=== PATIENT | female | born 1995 ===

== ENCOUNTER 2018-03-28 12:20 | Inpatient (IN) | payer OTHER ==
[2018-03-28 13:17] LABS: BASO % 0.8 % (0-2.0); EOS % 0.2 % (0-4.5); HEMATOCRIT 24.4 % (32.4-45.2); HEMOGLOBIN 7.2 GM/dL (10.7-15.3); LYMPH % 17.5 % (8-40); MCHC 29.6 g/dl (32.0-36.0); MEAN PLT VOLUME 8.9 fl (7.5-11.1); MONO % 9.5 % (3.8-10.2); PLATELET COUNT 221 K/MM3 (134-434); RDW 22.8 % (11.6-15.6)
[2018-03-28 13:24] LABS: MCH 18.1 pg (25.7-33.7)
[2018-03-28 13:30] VITALS: BMI 24.7
[2018-03-28 13:30] LABS: INR 0.92 (0.83-1.09); PROTHROMBIN TIME (PATIENT) 10.9 SEC (9.7-13.0)
[2018-03-28 13:32] LABS: ACTIVATED PTT 27.8 SECONDS (25.2-36.5)
[2018-03-28 14:02] LABS: ANION GAP 9 MMOL/L (8-16); BLOOD UREA NITROGEN 4 mg/dL (7-18); CALCIUM 8.3 mg/dL (8.5-10.1); CHLORIDE 106 mmol/L (98-107); CO2 21 mmol/L (21-32); CREATININE 0.5 mg/dL (0.55-1.3); GLUCOSE,RANDOM 55 mg/dL (74-106); POTASSIUM 4.4 mmol/L (3.5-5.1); SODIUM 136 mmol/L (136-145)
[2018-03-28 14:14] LABS: ANISOCYTOSIS 1+; MACROCYTOSIS 1+; OVALOCYTE 1+
[2018-03-28] MEDS ORDERED: DINOPROSTONE 10 MG VAGINAL SUPPOSITORY VG ONE (14:25)
[2018-03-28] MEDS ORDERED: DEXTROSE 5%-LACTATED RINGERS 1,000 ML IV SCH (15:15)
--- NOTE | 2018-03-28 15:17 | HP ---
Past Medical History - Admission Chief Complaint: Labor pain History of Present Illness: 22 yo , @ 41 gestation, EDC 03/21/18, admitted for labor pain. Upon admission she was 1-2cm dilated; decision made to insert a cervidil. History Source: Patient Limitations to Obtaining History: No Limitations - Past Medical History ...: 1 ...Para: 0 ...Term: 0 ...: 0 ...Spon : 0 ...Induced : 0 ...Multiple Gestation: 0 ...LMP: 06/14/17 ... Weeks Gestation by Dates: 41 ...EDC by Dates: 03/21/18 ...EDC by Sono: 03/27/18 - Past Surgical History Past Surgical History: Yes: None Hx Myomectomy: No Hx Transabdominal Cerclage: No - Smoking History Smoking history: Never smoked Have you smoked in the past 12 months: No - Alcohol/Substance Use Hx Alcohol Use: No History of Substance Use: reports: None - Social History Usual Living Arrangement: Yes: With Spouse History of Recent Travel: No Home Medications - Allergies Allergies/Adverse Reactions: Allergies Allergy/AdvReac Type Severity Reaction Status Date / Time No Known Allergies Allergy Verified 03/28/18 13:57 - Home Medications Home Medications: Ambulatory Orders Pnv No.95/Ferrous Fum/Folic AC [ Vitamin Tablet] 1 each PO DAILY Ferrous Sulfate [Iron] 325 mg PO BID 03/11/18 Family Disease History - Family Disease History Family History: Unremarkable Review of Systems - Review of Systems Constitutional: reports: No Symptoms Eyes: reports: No Symptoms HENT: reports: No Symptoms Neck: reports: No Symptoms Cardiovascular: reports: No Symptoms Respiratory: reports: No Symptoms Gastrointestinal: reports: No Symptoms Genitourinary: reports: Pain Neurological: reports: No Symptoms Psychiatric: reports: No Symptoms Pain Intensity: 4 Physical Exam - Maternity Vital Signs: Vital Signs Temperature 98.2 F 03/28/18 12:20 Pulse Rate 101 H 03/28/18 12:20 Respiratory Rate 18 03/28/18 12:20 Blood Pressure 112/66 03/28/18 12:20 O2 Sat by Pulse Oximetry (%) Constitutional: Yes: Well Nourished Eyes: Yes: Conjunctiva Clear HENT: Yes: Atraumatic Neck: Yes: Supple Cardiovascular: Yes: Regular Rate and Rhythm Lungs: Clear to auscultation - Abdominal Exam/OB Number of Fetuses: Single Presentation: Vertex - Vaginal Exam/OB Vaginal Bleediing: No Dilatation (cm): 1-2 Effacement (%): 60 Presentation: Vertex/Position Station: -2 - Physical Exam ...Motor Strength: WNL Psychiatric: Yes: Alert, Oriented - Labs Lab Results: CBC, BMP 03/28/18 12:48 03/28/18 12:48 Problem List - Problems (1) Pain during labor Code(s): O99.89 - OTH DISEASES AND CONDITIONS COMPL PREG/CHLDBRTH; R52 - PAIN, UNSPECIFIED (2) 41 weeks gestation of Code(s): Z3A.41 - 41 WEEKS GESTATION OF Assessment/Plan Post term 41 weeks gestation Cervidil induction Analgesia as needed Re-evaluate in 12hrs or before if indicated
[2018-03-29] MEDS ORDERED: PROMETHAZINE HCL 25 MG/1 ML VIAL ONE (04:20)
[2018-03-29] MEDS ORDERED: BUTORPHANOL TARTRATE 1 MG/ML VIAL ONE ×2 (04:20)
[2018-03-29] MEDS ORDERED: FENTANYL/BUPIVACAINE/NS/PF - PCEA - 50 ML DISP.SYRIN EP ONE (04:28)
[2018-03-29] MEDS ORDERED: BUTORPHANOL TARTRATE 1 MG/ML VIAL IVPUSH ONE (04:45)
[2018-03-29] MEDS ORDERED: PROMETHAZINE HCL 25 MG/1 ML VIAL IVPUSH ONE (04:45)
[2018-03-29] MEDS ORDERED: ELECTROLYTE-148 SOLN 1,000 ML IV SCH (05:00)
[2018-03-29] MEDS ORDERED: NALOXONE HCL 0.4 MG/ML VIAL IVPUSH PRN (05:21)
[2018-03-29] MEDS ORDERED: FENTANYL/BUPIVACAINE/NS/PF - PCEA - 50 ML DISP.SYRIN EP SCH (05:30)
[2018-03-29] MEDS ORDERED: OXYTOCIN 20 UNITS in 0.9% NS 20 UNIT/1,000 ML INFUS.BAG IV ONE ×2 (08:14→12:28)
[2018-03-29] MEDS: OXYTOCIN 20 UNITS in 0.9% NS 20 UNIT/1,000 ML INFUS.BAG IV SCH ×2 (09:00→12:45)
[2018-03-29] MEDS ORDERED: ACETAMINOPHEN 325 MG TABLET (FP) PO PRN (09:15)
[2018-03-29] MEDS ORDERED: METHYLERGONOVINE MALEATE 0.2 MG/1 ML AMP IM PRN (09:15)
[2018-03-29] MEDS ORDERED: IBUPROFEN 600 MG TABLET (FP) PO PRN (09:15)
[2018-03-29] MEDS ORDERED: BISACODYL 10 MG SUPP.RECT RC PRN (09:15)
[2018-03-29] MEDS ORDERED: BENZOCAINE 20% 57 GM BOTTLE TP PRN (09:15)
[2018-03-29] MEDS ORDERED: BENZOCAINE 28 GM HEMORRHOIDAL OINTMENT TP PRN (09:15)
[2018-03-29] MEDS ORDERED: WITCH HAZEL 50% (TUCKS) 40 PAD/JAR PAD TP PRN (09:15)
--- NOTE | 2018-03-29 09:19 | PN ---
Delivery - Delivery Vaginal Delivery: Spontaneous Type of Anesthesia: Epidural Episiotomy/Laceration: Midline EBL (cc): 250 Delivery, Single - Feeding Plan Initial Plan: Exclusive throughout hospitalization Remarks - Remarks Remarks: Normal spontaneous vaginal delivery of a live boy over midline episiotomy. Nose / Oropharynx suctioned @ perineum. Nuchal cord x 1 clamped and cut. Baby handed to nurse. Placenta expelled spontaneously intact. Midline episiotomy repaired with 2.0 Chromic.
[2018-03-29] MEDS ORDERED: TUBERCULIN PPD 5 TU/0.1ML SYRINGE (IN PATIENT USE ONLY) ID ONE (10:00)
[2018-03-29] MEDS: PRENATAL VITAMINS W/ FOLIC ACID TABLET (FP) PO SCH (10:43)
[2018-03-29] MEDS: FERROUS SO4 325 MG TABLET (FP) PO SCH (17:26)
[2018-03-30 08:35] LABS: BASO % 0.2 % (0-2.0); HEMATOCRIT 21.3 % (32.4-45.2); LYMPH % 8.2 % (8-40); MCHC 29.1 g/dl (32.0-36.0); MEAN CELL VOLUME 60.4 fl (80-96); MEAN PLT VOLUME 9.2 fl (7.5-11.1); MONO % 7.5 % (3.8-10.2); NEUT % 84.1 % (42.8-82.8); PLATELET COUNT 181 K/MM3 (134-434); RBC 3.52 M/mm3 (3.60-5.2); RDW 22.8 % (11.6-15.6); WHITE BLOOD COUNT 23.5 K/mm3 (4.0-10.0)
[2018-03-30 08:44] LABS: MCH 17.6 pg (25.7-33.7)
[2018-03-30 08:45] LABS: HEMOGLOBIN 6.2 GM/dL (10.7-15.3)
[2018-03-30] MEDS: FERROUS SO4 325 MG TABLET (FP) PO SCH ×2 (09:26→17:44)
[2018-03-30] MEDS: PRENATAL VITAMINS W/ FOLIC ACID TABLET (FP) PO SCH (09:26)
[2018-03-30] MEDS ORDERED: FLU VACCINE QUAD 60 MCG/0.5 ML (MDV 18-19) IM ONE (10:00)
[2018-03-30 14:07] LABS: ANISOCYTOSIS 3+; MACROCYTOSIS 0; OVALOCYTE 1+; PLATELET ESTIMATE NORMAL
--- NOTE | 2018-03-30 14:37 | PN ---
Post Progress Note - Subjective Subjective: 22 yo Para 1 status post vaginal delivery seen and evaluated. She denies any dizziness nor fatigue. She declines blood transfusion despite severe anemia. Post Day: 1 Type of Delivery: Vital Signs: Vital Signs Temperature 98.8 F 03/30/18 08:47 Pulse Rate 80 03/30/18 08:47 Respiratory Rate 13 03/30/18 08:47 Blood Pressure 116/65 03/30/18 08:47 O2 Sat by Pulse Oximetry (%) 100 03/29/18 08:45 Breast Exam: Yes: Soft Uterus: Yes: Fundus Firm Abdomen/GI: Yes: Abdomen soft, Tolerating PO Lochia: Yes: Rubra Lochia, amount: Moderate Extremities: Yes: Calves non-tender Perineum: Yes: Episiotomy (healing) Activity: Ambulating - Labs Labs: CBC WBC 23.5 K/mm3 (4.0-10.0) H 03/30/18 07:15 RBC 3.52 M/mm3 (3.60-5.2) L 03/30/18 07:15 Hgb 6.2 GM/dL (10.7-15.3) L* 03/30/18 07:15 Hct 21.3 % (32.4-45.2) L 03/30/18 07:15 MCV 60.4 fl (80-96) L 03/30/18 07:15 MCH 17.6 pg (25.7-33.7) L 03/30/18 07:15 MCHC 29.1 g/dl (32.0-36.0) L 03/30/18 07:15 RDW 22.8 % (11.6-15.6) H 03/30/18 07:15 Plt Count 181 K/MM3 (134-434) 03/30/18 07:15 MPV 9.2 fl (7.5-11.1) 03/30/18 07:15 Absolute Neuts (auto) 19.8 K/mm3 (1.5-8.0) H 03/30/18 07:15 Neutrophils % 84.1 % (42.8-82.8) H 03/30/18 07:15 Neutrophils % (Manual) 90.1 % (42.8-82.8) H 03/30/18 07:15 Band Neutrophils % 0.0 % 03/30/18 07:15 Lymphocytes % 8.2 % (8-40) D 03/30/18 07:15 Lymphocytes % (Manual) 3.0 % (8-40) L 03/30/18 07:15 Monocytes % 7.5 % (3.8-10.2) 03/30/18 07:15 Monocytes % (Manual) 7 % (3.8-10.2) 03/30/18 07:15 Eosinophils % 0.0 % (0-4.5) D 03/30/18 07:15 Eosinophils % (Manual) 0.0 % (0-4.5) 03/30/18 07:15 Basophils % 0.2 % (0-2.0) 03/30/18 07:15 Basophils % (Manual) 0.0 % (0-2.0) 03/30/18 07:15 Myelocytes % (Man) 0 % (0-2) 03/30/18 07:15 Promyelocytes % (Man) 0 % (0-2) 03/30/18 07:15 Blast Cells % (Manual) 0 % (0-0) 03/30/18 07:15 Nucleated RBC % 0 % (0-0) 03/30/18 07:15 Metamyelocytes 0 % (0-2) 03/30/18 07:15 Hypochromia 2+ 03/30/18 07:15 Platelet Estimate Normal 03/30/18 07:15 Polychromasia 2+ 03/30/18 07:15 Poikilocytosis 1+ 03/30/18 07:15 Anisocytosis 3+ 03/30/18 07:15 Microcytosis 2+ 03/30/18 07:15 Macrocytosis 0 03/30/18 07:15 Spherocytes 1+ 03/30/18 07:15 Ovalocytes 1+ 03/30/18 07:15 Problem List - Problems (1) Pain during labor Code(s): O99.89 - OTH DISEASES AND CONDITIONS COMPL PREG/CHLDBRTH; R52 - PAIN, UNSPECIFIED (2) 41 weeks gestation of Code(s): Z3A.41 - 41 WEEKS GESTATION OF (3) Status post normal vaginal delivery Code(s): FVD0356 - (4) Anemia Code(s): D64.9 - ANEMIA, UNSPECIFIED Qualifiers: Iron deficiency anemia type: unspecified iron deficiency Assessment/Plan Status post vaginal delivery Severe anemia Counseling on blood transfusion Continue FeSO4
[2018-03-30] MEDS ORDERED: SENNOSIDES/DOCUSATE COMBO (SENNA PLUS) TABLET (UD) PO PRN (22:00)
[2018-03-31 01:16] VITALS: TEMP 98.4
[2018-03-31] MEDS: FERROUS SO4 325 MG TABLET (FP) PO SCH (08:56)
[2018-03-31 10:05] VITALS: BP 126/84; PULSE 113
[2018-03-31] MEDS: PRENATAL VITAMINS W/ FOLIC ACID TABLET (FP) PO SCH (10:07)
--- NOTE | 2018-03-31 14:02 | DS ---
Physical Exam-DINING ROOM [facility]IER Vital Signs: Vital Signs Temperature 98.4 F 03/31/18 10:00 Pulse Rate 113 H 03/31/18 10:00 Respiratory Rate 18 03/31/18 10:00 Blood Pressure 126/84 03/31/18 10:00 O2 Sat by Pulse Oximetry (%) 100 03/29/18 08:45 Constitutional: Yes: Well Nourished Eyes: Yes: Conjunctiva Clear HENT: Yes: Atraumatic Neck: Yes: Supple Cardiovascular: Yes: Regular Rate and Rhythm Respiratory: Yes: Regular Gastrointestinal: Yes: Normal Bowel Sounds Pelvis: Yes: WNL External Genitalia: Yes: Normal Vaginal Exam: Yes: Normal Cervix: Yes: Normal Uterus: Yes: Firm ....Post : Yes: Uterus firm, Moderate lochia serosa Musculoskeletal: Yes: WNL Extremities: Yes: WNL Neurological: Yes: Alert, Oriented ...Motor Strength: WNL Psychiatric: Yes: Alert, Oriented Labs: CBC, BMP 03/30/18 07:15 03/28/18 12:48 Delivery - Delivery Vaginal Delivery: Spontaneous Type of Anesthesia: Epidural Episiotomy/Laceration: Midline EBL (cc): 250 Delivery, Single - Stages of Labor Date 1st Stage Initiatied: 03/28/18 Time 1st Stage Initiated: 18:00 Date 2nd Stage Initiated: 03/29/18 Time 2nd Stage Initiated: 08:10 Date of Delivery: 03/29/18 Time of Delivery: 08:55 Time Placenta Delivered: 09:00 - Condition of Processing Lead/Supervisor Heavy Equipment Present: Yes Name: Dennise Mauro Infant Gender: Male Weight: 5 lb 11 oz Position: Right, OA Total Hours ROM (Hrs/Mins): 4/45 - 1 Minute Total Score: 9 5 Minutes Total Score: 9 - Feeding Plan Initial Plan: Exclusive throughout hospitalization Discharge Summary Reason For Visit: LABOR ADMISSION Current Active Problems 41 weeks gestation of (Acute) Anemia (Acute) Pain during labor (Acute) Status post normal vaginal delivery (Acute) Procedures: Principal: Normal spontaneous vaginal delivery Hospital Course: Routine care She declined blood transfusion. She was advised to continue iron therapy. Condition: Good - Instructions Diet, Activity, Other Instructions: Regular diet No douching, no sexual intercourse x 6 weeks. F/U with MD in 6 weeks Disposition: HOME - Home Medications Comprehensive Discharge Medication List: Ambulatory Orders Pnv No.95/Ferrous Fum/Folic AC [ Vitamin Tablet] 1 each PO DAILY Ferrous Sulfate [Iron] 325 mg PO BID 03/11/18
== END 2018-03-31 15:48 | disposition home or self-care (01) | DRG 807 ==
LOC: JLDR 12:20 → J3W 03-29 13:26
PROVIDERS: ADMIT Obstetrics & Gynecology; ATTEND Obstetrics & Gynecology
PROC: 3E0P7VZ Introduction of Hormone into Female Reproductive, Via Natural or Artificial Opening (ICD-10-PCS; 2018-03-28)
PROC: 10E0XZZ Delivery of Products of Conception, External Approach (ICD-10-PCS; principal; 2018-03-29)
PROC: 0W8NXZZ Division of Female Perineum, External Approach (ICD-10-PCS; 2018-03-29)
DX: O48.0 Post-term pregnancy (principal); Z37.0 Single live birth; O99.013 Anemia complicating pregnancy, third trimester; Z3A.41 41 weeks gestation of pregnancy
CPT/HCPCS: 36415; 59409; 80048; 85025; 85610; 85730; 86593; 86850; 86900; 86901; 90686; G0008